=== PATIENT | male | born 1980 | race Two or more races ===

== ENCOUNTER 2016-07-14 00:56 | Emergency (ER) | payer MEDICAID ==
[~2016-07-14] VITALS: Ht 180.3 cm; Wt 95.3 kg
[2016-07-14 01:31] LABS: Basophils # (auto) 0 uL; Basophils % (auto) 0.5 % (0.0-2.0); Eosinophils # (auto) 0.1 uL; Eosinophils % (auto) 1.3 % (0.0-7.0); Hematocrit 47.5 % (41.0-53.0); Hemoglobin 15.6 g/dL (13.5-17.5); Lymphocytes # (auto) 1.5 uL; Mean Corpuscular Hemoglobin 28.8 pg (28.0-32.0); Mean Corpuscular Hgb Conc. 32.9 g/dL (32.0-36.0); Mean Corpuscular Volume 87.7 fL (80.0-100.0); Monocytes # (auto) 0.8 uL; Monocytes % (auto) 13.4 % (0.0-12.0); Neutrophils # (auto) 3.4 uL; Neutrophils % (auto) 58.8 % (37.0-80.0); Platelet Count (auto) 280 10^3/uL (140-450); Red Cell Distribution Width 14.1 % (11.6-16.0); White Blood Cell 5.8 10^3/uL (4.4-10.8)
[2016-07-14 01:54] LABS: Albumin 3.6 g/dL (3.4-5.0); Anion Gap 14 (5-15); Aspartate Aminotransferase 62 U/L (15-37); BUN/Creatinine Ratio 11.7; Blood Urea Nitrogen 14 mg/dL (7-18); Calcium 7.8 mg/dL (8.5-10.1); Carbon Dioxide 22 mmol/L (21-32); Chloride 107 mmol/L (98-107); GFR African American 89 mL/min; GFR Non-African American 74 mL/min; Glucose 174 mg/dL (74-106); Salicylate < 1.7 mg/dL (2.8-20.0); Sodium 143 mmol/L (136-145)
[2016-07-14 01:57] LABS: Alkaline Phosphatase 44 U/L (45-117); Bilirubin, Total 0.2 mg/dL (0.2-1.0); Total Protein 7.7 g/dL (6.4-8.2)
[2016-07-14 01:58] LABS: Acetaminophen < 2.0 ug/mL (10-30)
[2016-07-14] MEDS ORDERED: SODIUM CHLORIDE 0.9% 1,000 ML IV ONE (02:45)
[2016-07-14 02:58] VITALS: BP 112/53
[2016-07-14 03:53] LABS: Urine RBC None Seen /hpf (0 - 3)
[2016-07-14 04:09] LABS: Urine Bilirubin Negative (Negative); Urine Blood Negative /uL (Negative); Urine Color Yellow (Yellow); Urine Glucose Normal (Normal); Urine Granular Cast FEW /lpf (0); Urine Ketone Negative (Negative); Urine Nitrite Negative (Negative); Urine Urobilinogen Normal (Negative)
== END 2016-07-14 03:45 | disposition home or self-care (01) ==
LOC: EDBD 00:56 → ER 01:13
DX: G92 Toxic encephalopathy (principal); F17.210 Nicotine dependence, cigarettes, uncomplicated; F12.10 Cannabis abuse, uncomplicated; F11.10 Opioid abuse, uncomplicated; F19.10 Other psychoactive substance abuse, uncomplicated; Y92.89 Other specified places as the place of occurrence of the external cause
CPT/HCPCS: 36415; 80053; 80320; 80329; 81001; 82550; 82962; 84484; 85025; 85049; 93005; 96360; 99285; G0434; J7030; 96361

== ENCOUNTER 2018-02-02 11:35 | Emergency (ER) | payer MEDICAID ==
[~2018-02-02] VITALS: Ht 180.3 cm; Wt 95.3 kg
[2018-02-02 12:35] VITALS: BP 181/96
== END 2018-02-02 11:55 | disposition left against medical advice (07) ==
LOC: ER 11:35
DX: Z53.21 Procedure and treatment not carried out due to patient leaving prior to being seen by health care provider (principal)

== ENCOUNTER 2018-10-19 05:19 | Emergency (ER) | payer MEDICAID ==
[~2018-10-19] VITALS: Ht 182.9 cm; Wt 90.7 kg
[2018-10-19] MEDS ORDERED: SODIUM CHLORIDE 0.9% 1,000 ML IV ONE (06:00)
[2018-10-19] MEDS ORDERED: LORazepam 2MG/ML-1ML VIAL IV ONE (06:30)
[2018-10-19] MEDS ORDERED: ACTIVATED CHARCOAL 50 GM/240 ML SOL PO ONE (06:30)
[2018-10-19 07:17] LABS: Basophils # (auto) 0 uL; Basophils % (auto) 0.3 % (0.0-2.0); Eosinophils # (auto) 0.1 uL; Eosinophils % (auto) 1.4 % (0.0-7.0); Hemoglobin 13.5 g/dL (13.5-17.5); Lymphocytes % (auto) 11.1 % (10.0-50.0); Mean Corpuscular Hemoglobin 30.4 pg (28.0-32.0); Mean Corpuscular Hgb Conc. 33.8 g/dL (32.0-36.0); Mean Corpuscular Volume 89.9 fL (80.0-100.0); Monocytes # (auto) 0.8 uL; Monocytes % (auto) 8.6 % (0.0-12.0); Neutrophils # (auto) 7.1 uL; Neutrophils % (auto) 78.6 % (37.0-80.0); Platelet Count (auto) 264 10^3/uL (140-450); Red Blood Cells 4.45 10^6/uL (4.5-5.90); Red Cell Distribution Width 12.9 % (11.8-14.3)
[2018-10-19 07:28] LABS: Potassium 3.9 mmol/L (3.5-5.1)
[2018-10-19 07:32] LABS: Albumin 3.6 g/dL (3.4-5.0); Calcium 8.5 mg/dL (8.5-10.1)
[2018-10-19 07:36] LABS: Bilirubin, Total 0.6 mg/dL (0.2-1.0); Salicylate < 1.7 mg/dL (2.8-20.0); Total Protein 6.9 g/dL (6.4-8.2)
[2018-10-19 07:43] LABS: Acetaminophen < 2.0 ug/mL (10-30)
[2018-10-19 11:49] VITALS: BP 117/85
[2018-10-19 13:52] LABS: Urine Bacteria NONE SEEN /hpf (None Seen); Urine Blood Negative /uL (Negative); Urine Specific Gravity 1.016 (1.001-1.035); Urine WBC 1 /hpf (0 - 3)
[2018-10-19 14:00] LABS: Alcohol, Urine < 3.0 mg/dL (0-5); Amphetamine Screen, Urine POSITIVE (NEGATIVE); Barbiturate Scree,Urine NEGATIVE (NEGATIVE); Benzodiazephine Screen, Urine NEGATIVE (NEGATIVE); Cannabinoid Screen, Urine NEGATIVE (NEGATIVE); Cocaine Screen, Urine NEGATIVE (NEGATIVE); Opiate Scree,Urine NEGATIVE (NEGATIVE); Phencyclidine Screen, Urine NEGATIVE (NEGATIVE)
== END 2018-10-19 14:26 | disposition left against medical advice (07) ==
LOC: ER 05:19 → EDBD 05:19 → ER 14:26
DX: F15.10 Other stimulant abuse, uncomplicated (principal); F17.210 Nicotine dependence, cigarettes, uncomplicated; F12.90 Cannabis use, unspecified, uncomplicated; Z53.29 Procedure and treatment not carried out because of patient's decision for other reasons
CPT/HCPCS: 36415; 74018; 80053; 80307; 80329; 81001; 85025; 93005; 94761; 96374; 99284; J2060; J7030